=== PATIENT | female | born 1960 | race Caucasian/White ===

== ENCOUNTER 2020-12-21 12:45 | Emergency (ER) | payer MEDICARE ==
[2020-12-21] MEDS ORDERED: NAPROSYN500 MG PO (13:55)
== END 2020-12-21 15:00 | disposition home or self-care (01) ==
LOC: ER1 12:45
DX: S83.91XA Sprain of unspecified site of right knee, initial encounter (principal); X50.9XXA Other and unspecified overexertion or strenuous movements or postures, initial encounter; Y92.009 Unspecified place in unspecified non-institutional (private) residence as the place of occurrence of the external cause
CPT/HCPCS: 29530; 73562; 99283

== ENCOUNTER → 2020-12-29 | Outpatient (CLI) | payer MEDICARE ==
[~2020-12-29] MED LIST: NAPROSYN500 MG PO
== END ==
LOC: MAMO 13:27 → EMI 13:27 → MAMO 14:00
DX: Z12.31 Encounter for screening mammogram for malignant neoplasm of breast (principal); S83.421A Sprain of lateral collateral ligament of right knee, initial encounter; M94.261 Chondromalacia, right knee
CPT/HCPCS: 73721; 77063; 77067

== ENCOUNTER → 2021-06-08 | Outpatient (CLI) | payer MEDICARE | LOC: EMI 05-08 10:00 | DX: G35 Multiple sclerosis (principal); R90.89 Other abnormal findings on diagnostic imaging of central nervous system; R90.82 White matter disease, unspecified | CPT/HCPCS: 70553; A9577 ==

== ENCOUNTER → 2021-06-08 | Outpatient (CLI) | payer MEDICARE ==
[2021-06-08 10:59] LABS: HEMOGLOBIN 13.7 gm/dl (12.3-15.3); RED BLOOD COUNT 4.23 M/UL (4.00-5.10)
[2021-06-08 11:23] LABS: BUN/CREATININE RATIO 28 (0-10)
== END ==
LOC: LAB 10:13
PROVIDERS: Nurse Practitioner Family
DX: I10 Essential (primary) hypertension (principal); E78.00 Pure hypercholesterolemia, unspecified; E03.9 Hypothyroidism, unspecified
CPT/HCPCS: 36415; 80053; 80061; 84439; 84443; 85025